=== PATIENT | male | born 1950 | race Two or more races ===

== ENCOUNTER 2021-05-16 08:24 | Emergency (ER) | payer OTHER ==
[~2021-05-16] VITALS: Ht 188 cm; Wt 99.8 kg
[2021-05-16 08:49] VITALS: BP 155/118
== END 2021-05-16 09:52 | disposition left against medical advice (07) ==
LOC: EDBD 08:24 → ER 08:24
DX: F10.10 Alcohol abuse, uncomplicated (principal); R00.0 Tachycardia, unspecified; Y90.9 Presence of alcohol in blood, level not specified
CPT/HCPCS: 93005